=== PATIENT | female | born 1975 | race Caucasian/White ===

== ENCOUNTER 2018-06-22 00:47 | Outpatient (CLI) | payer BC, SELFPAY ==
--- NOTE | 2018-06-22 10:35 | DI.MAMMO_ITS ---
SYMPTOM/DIAGNOSIS: F/U MAMMO, 6 MO. F/U, R92.8 RIGHT MAMMOGRAM: Mammograms were interpreted according to the usual protocol including computer analysis with CAD system, tomosynthesis and C view imaging. This is a 6 month follow up from 11/2017. The right breast is composed of heterogeneously dense fibroglandular tissue. No suspicious masses or suspicious microcalcifications are seen. IMPRESSION: Category 1C, negative mammogram. Bilateral screening should be resumed in 6 months. [facility] ASSESSMENT OF FINDINGS: Negative. Category 1. Patient will receive a letter notifying them of these results. Bi-RADS category C. The breasts are heterogeneously dense, which may obscure small masses.
== END 2018-06-22 01:07 ==
PROVIDERS: Visit Provider Nurse Practitioner Family
DX: Z12.31 Encounter for screening mammogram for malignant neoplasm of breast (principal); R92.8 Other abnormal and inconclusive findings on diagnostic imaging of breast; N64.59 Other signs and symptoms in breast
CPT/HCPCS: 77061; 77065; G0279

== ENCOUNTER 2019-03-25 16:28 | Outpatient (REF) | payer BC, SELFPAY ==
--- NOTE | 2019-03-25 15:45 | PAPFT_PTH ---
PATIENT: Katty Zarate LOC: [facility] U#:[id number] AGE/SX: 43/F ROOM: RE03/25/[address]: NADEEN Munson : 1975 BED: DIS: 03/25/2019 SPEC #: [id number] RECD: 03/28/19 10:53 STATUS: HERNAN RETheo #: [id number] PASCALE: 03/25/19 15:[address]: Ana Bravo DEPT: [facility] Cytology RECD BY: Shi Gardiner ENTERED: 03/28/19 10:54 SP TYPE: PAPFT OTHR DR: Aretha Nolasco APRN Tissues: 1 - CX/ENDOCX FOR PAP SMEARS Procedures: PAP THIN PREP/UVM Screening HPV DNA PROBE Comments: [id number]
== END 2019-03-25 16:48 ==
LOC: LBN 16:28
PROVIDERS: Visit Provider Nurse Practitioner Family
DX: Z12.4 Encounter for screening for malignant neoplasm of cervix (principal); Z11.51 Encounter for screening for human papillomavirus (HPV)
CPT/HCPCS: 88142; 87624

== ENCOUNTER 2020-01-12 00:51 | Outpatient (CLI) | payer BC, SELFPAY ==
--- NOTE | 2020-01-12 16:24 | DI.MAMMO_ITS ---
EXAM: MAMMO SCREENING CLINICAL HISTORY: screening,Z12.39 TECHNIQUE: Mammograms were interpreted according to the usual protocol including computer analysis w [employer] CAD system, tomosynthesis and C-view imaging. COMPARISON: 2016 through 2019. FINDINGS: The breasts are composed of heterogeneously dense fibroglandular densities, Breast Density category C . No suspicious masses or suspicious microcalcifications are seen. No skin thickening or abnormal axillary lymph nodes are seen. There has been no significant change from prior exams. IMPRESSION: BI-RADS Category 1: Negative mammogram Yearly screening mammography is recommended. Breast Density - Category C, heterogeneously dense tissue which decreases the sensitivity of the mamm ogram. The mammogram demonstrates the patient's breast tissue is dense. Dense breast tissue is very common a nd is not abnormal but dense breast tissue can make it harder to find cancer on a mammogram. Also, de nse breast tissue may increase breast cancer risk. This information about the result of the mammogram report was provided to the patient to raise their awareness. Use this report when you speak with the patient about their risks for breast cancer, which includes their family history. At that time, you may recommend additional screening tests (Ultrasound or MRI) as they might be useful based on their r isk. A negative radiographic report should not delay biopsy if a dominant or clinically suspicious mass is present. Up to ten percent of cancers are not identified on mammography. A negative report may reinforce clinical impression. Adenosis and dense breasts may obscure an underlying neoplasm. False positive reports average 6 to 10%.
== END 2020-01-12 01:11 ==
PROVIDERS: Visit Provider Nurse Practitioner Family
DX: Z12.31 Encounter for screening mammogram for malignant neoplasm of breast (principal); R92.2 Inconclusive mammogram
CPT/HCPCS: 77063; 77067

== ENCOUNTER 2021-03-12 01:19 | Outpatient (CLI) | payer BC, SELFPAY ==
--- NOTE | 2021-03-12 15:50 | DI.MAMMO_ITS ---
Exam(s) MAMMO SCREENING EXAM: MAMMO SCREENING CLINICAL HISTORY: SCREENING, Z12.39 TECHNIQUE: Bilateral full field digital CC and MLO mammographic images were obtained with 3D tomosyn thesis and utilizing computer aided detection (CAD). COMPARISON: Available for comparison. FINDINGS: Masses/Architectural Distortion: There is a focal asymmetry in the posterior superior left breast on the mediolateral oblique view approximately 8 cm from the nipple. Microcalcifications: No suspicious pleomorphic-type are seen. Skin Thickening/Nipple Retraction: None. IMPRESSION: 1. Asymmetric density in the posterior superior left breast on the MLO view. 2. Spot compression views requested for further evaluation. Ultrasound may be indicated at that time . BI-RADS Category 0 - Assessment Incomplete: Need additional imaging evaluation Breast Density - Category C - Heterogeneously dense Breast density category C or D implies that the patient has dense breast tissue. Dense breast tissue is very common and is not abnormal but dense breast tissue can make it harder to find cancer on a ma mmogram. Also, dense breast tissue may increase their breast cancer risk. This information about the result of the mammogram report was provided to the patient to raise their awareness. Use this report when you speak with the patient about their risks for breast cancer, which includes their family hist ory. At that time, you may recommend for more screening tests (Ultrasound or MRI) as they might be us eful based on their risk. A negative radiographic report should not delay biopsy if a dominant or clinically suspicious mass is present. Up to ten percent of cancers are not identified on mammography. A negative report may reinforce clinical impression. Adenosis and dense breasts may obscure an underlying neoplasm. False positive reports average 6 to 10%. Patient will receive a letter notifying them of these results.
== END 2021-03-12 01:39 ==
PROVIDERS: Visit Provider Nurse Practitioner Family
DX: Z12.31 Encounter for screening mammogram for malignant neoplasm of breast (principal); R92.8 Other abnormal and inconclusive findings on diagnostic imaging of breast
CPT/HCPCS: 77063; 77067

== ENCOUNTER 2021-03-29 02:21 | Outpatient (CLI) | payer BC, SELFPAY ==
--- NOTE | 2021-03-29 14:48 | DI.MAMMO_ITS ---
Exam(s) MAMMO SCREEN CALL BACK UNI EXAM: MAMMO SCREEN CALL BACK UNI CLINICAL HISTORY: ASYMMETRIC DENSITY IN POSTERIOR SUPERIOR LT BREAST TECHNIQUE: Spot compression views and tomographic imaging were performed. COMPARISON: March 14 and exams back to 2015. FINDINGS: No suspicious masses or suspicious microcalcifications are seen. No persistent abnormality is seen on the additional views performed. The findings are consistent wit h overlying fibroglandular tissue. There has been no significant change from prior exams. IMPRESSION: BI-RADS Category 1, Negative Yearly screening mammography is recommended. Breast Density - Category C - Heterogeneously dense
== END 2021-03-29 02:41 ==
PROVIDERS: Visit Provider Nurse Practitioner Family
DX: R92.8 Other abnormal and inconclusive findings on diagnostic imaging of breast (principal)
CPT/HCPCS: 77063; 77067

== ENCOUNTER 2021-05-31 09:43 | Outpatient (REF) | payer BC, SELFPAY ==
[2021-06-01 16:56] LABS: COVID-19 RT-PCR UVMMC Result Negative (Negative)
== END 2021-05-31 09:44 | disposition home or self-care (01) ==
LOC: LBN 09:43
PROVIDERS: Visit Provider Family Medicine
DX: Z20.822 Contact with and (suspected) exposure to COVID-19 (principal)
CPT/HCPCS: U0003

== ENCOUNTER → 2023-03-09 01:15 | Outpatient (CLI) | payer BC, SELFPAY ==
--- NOTE | 2023-03-09 09:00 | DI.MAMMO_ITS ---
Exam(s) MAMMO SCREENING EXAM: MAMMO SCREENING CLINICAL HISTORY: screening,Z12.31 TECHNIQUE: Bilateral full field digital CC and MLO mammographic images were obtained with 3D tomosyn thesis and utilizing computer aided detection (CAD). COMPARISON: Available for comparison. FINDINGS: Masses/Architectural Distortion: There appears to be a new 8 mm nodule in the central lower left [address]. No areas of architectural distortion are seen. Microcalcifications: No suspicious pleomorphic-type are seen. Skin Thickening/Nipple Retraction: None. IMPRESSION: 1. New 8 mm nodule in the left breast. 2. Further evaluation with a spot compression view and a left breast ultrasound is requested. BI-RADS Category 0 - Assessment Incomplete: Need additional imaging evaluation Breast Density - Category C - Heterogeneously dense Breast density category C or D implies that the patient has dense breast tissue. Dense breast tissue is very common and is not abnormal but dense breast tissue can make it harder to find cancer on a ma mmogram. Also, dense breast tissue may increase their breast cancer risk. This information about the result of the mammogram report was provided to the patient to raise their awareness. Use this report when you speak with the patient about their risks for breast cancer, which includes their family hist ory. At that time, you may recommend for more screening tests (Ultrasound or MRI) as they might be us eful based on their risk. A negative radiographic report should not delay biopsy if a dominant or clinically suspicious mass is present. Up to ten percent of cancers are not identified on mammography. A negative report may reinforce clinical impression. Adenosis and dense breasts may obscure an underlying neoplasm. False positive reports average 6 to 10%. Patient will receive a letter notifying them of these results.
== END ==
PROVIDERS: PCP Nurse Practitioner Family; Visit Provider Obstetrics & Gynecology
DX: Z12.31 Encounter for screening mammogram for malignant neoplasm of breast (principal)
CPT/HCPCS: 77063; 77067

== ENCOUNTER 2023-03-09 16:07 | Outpatient (REF) | payer BC, SELFPAY ==
--- NOTE | 2023-03-09 16:15 | PAPFT_PTH ---
PATIENT: Katty Zarate LOC: [facility] U#:[id number] AGE/SX: 47/F ROOM: RE03/09/[address]: Lolita Telles MD : 1975 BED: DIS: 03/09/2023 SPEC #: [id number] RECD: 03/09/23 17:41 STATUS: HERNAN REQ #: [id number] PASCALE: 03/09/23 16:[address]: Lolita Telles DEPT: [facility] Cytology RECD BY: Elaine Ga ENTERED: 03/09/23 17:41 SP TYPE: PAPFT OTHR DR: Mehdi Velazquez DNP Tissues: 1 - CX/ENDOCX FOR PAP SMEARS Procedures: PAP THIN PREP/UVM Screening HPV DNA PROBE Comments: [id number]
== END 2023-03-09 16:08 | disposition home or self-care (01) ==
LOC: LBN 16:07
PROVIDERS: PCP Nurse Practitioner Family; Visit Provider Obstetrics & Gynecology
DX: Z12.4 Encounter for screening for malignant neoplasm of cervix (principal); Z11.51 Encounter for screening for human papillomavirus (HPV)
CPT/HCPCS: 88142; 87624

== ENCOUNTER 2023-03-16 01:26 | Outpatient (CLI) | payer BC, SELFPAY ==
--- NOTE | 2023-03-16 | DI.MAMMO_ITS ---
Exam(s) MG MAMMO SCREEN CALL BACK UNI US BREAST LT COMPLETE EXAM: MG MAMMO SCREEN CALL BACK UNI-LEFT AND COMPLETE LEFT BREAST ULTRASOUND CLINICAL HISTORY: 8 MM NODULE LEFT BREAST R92.8 ABNL MAMMO. TECHNIQUE: Unilateral spot mammographic images obtained with 3D tomosynthesisand utilizing computer aided detection (CAD). . Complete LEFT breast Ultrasound was also performed, including all 4 quadrants, the retroareolar regio n, and the ipsilateral axilla. COMPARISON: Prior mammograms were reviewed. This additional imaging was performed due to findings described on the recent screening mammogram of 03/09/2023. FINDINGS: DIAGNOSTIC MAMMOGRAM: Additional mammographic views performed todayare somewhat equivocal for the presence of a true nodule at this location. We proceeded with ultrasound COMPLETE LEFT BREAST ULTRASOUND: Ultrasound performed today reveals 2 small benign microcyst at the 10 and 11 o'clock positions, measu ring 3 and 5 mm, respectively. One of these may or may not correspond to the finding on the mammogra m. Nevertheless, there are no focal solid lesions seen in all 4 quadrants of the left breast. Scanning of the ipsilateral axilla reveals no significant adenopathy. IMPRESSION: 1. Benign-appearing findings as described above. Appropriate follow-up as discussed by myself with the patient today is repeat left breast mammogram a nd ultrasound in 6 months. The patient was informed of these findings and recommendations by myself prior to leaving the [facility] ent today. BI-RADS Category 3 - 6 month - Probably Benign Finding: Recommend follow-up mammography in 6 months Breast Density - Category C - Heterogeneously dense Breast density Category C or D implies that the patient has dense breast tissue. Dense breast tissue can make it harder to find cancer on a mammogram. Dense breast tissue is also associated with an incr eased risk of breast cancer. This information about the result of the mammogram report was provided to the patient to raise their awareness. Use this report when you speak with the patient about their risks for breast cancer, which includes their family history. At that time, you may recommend additional screening tests (Ultrasoun d or MRI) as these tests may add significant information. A negative radiographic report should not delay biopsy if a dominant or clinically suspicious mass is present. Up to ten percent of cancers are not identified on mammography. A negative report may reinforce clinical impression. Adenosis and dense breasts may obscure an underlying neoplasm. False positive reports average 6 to 10%. Patient will receive a letter notifying them of these results.
== END 2023-03-16 01:46 ==
LOC: DI 01:27
PROVIDERS: PCP Nurse Practitioner Family; Visit Provider Obstetrics & Gynecology
DX: Z12.31 Encounter for screening mammogram for malignant neoplasm of breast (principal); N63.22 Unspecified lump in the left breast, upper inner quadrant
CPT/HCPCS: 76642; 77063; 77067

== ENCOUNTER 2023-08-14 21:21 | Outpatient (REF) | payer BC, SELFPAY ==
[2023-08-14 21:26] LABS: Abs Immature Grans 0.02 10^3/uL (0.0-0.06); Absolute Basophil Count 0.06 10^3/uL (0.0-0.2); Absolute Eosinophil Count 0.32 10^3/uL (0.0-0.7); Absolute Lymphocyte Count 1.92 10^3/uL (1.2-3.4); Absolute Monocyte Count 0.59 10^3/uL (0.1-0.8); Absolute Neutrophil Count 3.82 10^3/uL (1.2-6.7); Basophils % 0.9; Eosinophils % 4.8; HCT 44.2 % (36.0-46.0); Immature Grans % 0.3; Lymphocytes % 28.5; MCHC 33.9 % (32.0-36.0); MCV 85 fL (80-95); MPV 9.8 fL (8.0-11.0); Monocytes % 8.8; Neutrophils % 56.7; Platelet Count 275 10^3/uL (130-400); RBC 5.18 10^6/uL (3.93-5.22); RDW 12.3 % (11.7-14.6); RDW-SD 38.4 fL; WBC 6.73 10^3/uL (4.4-10.8)
[2023-08-14 21:42] LABS: ALT 35 U/L (14-59); AST 24 U/L (15-37); Albumin 3.9 g/dL (3.4-5.0); Alkaline Phosphatase 54 U/L (46-116); Anion Gap 11.6 mmol/L (3-11); BUN 9 mg/dL (7-18); Bilirubin, Total 0.5 mg/dL (0.2-1.0); CO2 25.4 mmol/L (21.0-32.0); CREATININE 0.7 mg/dL (0.55-1.02); Calcium 9.3 mg/dL (8.5-10.1); Chloride 105 mmol/L (98-107); Estimated GFR 106.62 (mL/min/1.73m2); Glucose 88 mg/dL (74-106); Potassium 3.9 mmol/L (3.5-5.1); Sodium 142 mmol/L (136-145); Total Protein 7.1 g/dL (6.4-8.2)
== END 2023-08-14 21:22 | disposition home or self-care (01) ==
LOC: LBN 21:21
PROVIDERS: PCP Nurse Practitioner Family; Visit Provider Physician Assistant Medical
DX: R10.9 Unspecified abdominal pain (principal)
CPT/HCPCS: 80053; 85025

== ENCOUNTER 2023-08-20 11:26 | Emergency (ER) | payer BC, SELFPAY ==
[2023-08-20 11:33] VITALS: BP 173/89; PULSE 98; RESP 16; TEMP 36.6; O2SAT 100
--- NOTE | 2023-08-20 12:26 | ED.GENADUL_ITS ---
Discharge Plan Disposition Patient Disposition: Home Discharge Details Clinical Impression: Constipation Primary Care Provider: Mehdi Shukla ED Provider: Luis Erazo Home Meds and New Rx's Prescriptions: New polyethylene glycol 3350 17 gram/dose powder 17 g PO DAILY Qty: 850 0RF Rx Instructions: Please provide 1 gallon of polyethylene glycol for patient to drink over 4 hours in the setting of constipation Continued magnesium 200 mg tablet 200 mg PO DAILY omega 5-hpm-xgq-fish oil [Fish Oil] 60-90-500 mg capsule 1 cap PO DAILY calcium carbonate [Calcium 600] 600 mg calcium (1,500 mg) tablet 600 mg PO DAILY cetirizine [Zyrtec] 10 mg tablet 10 mg PO DAILY PRN Liletta 20.4 mcg/24 hrs (8 yrs) 52 mg intrauterine device 1 device intrauterine ONCE Rx Instructions: as a single dose cholecalciferol (vitamin D3) [Vitamin D3] 1,000 UNIT capsule 1,000 unit PO DAILY Patient Comments: 04/23/17 not taking. DL Probiotic 1 EACH capsule 1 ea PO DAILY mu-xau-djdil acid-lutein 200-137.5 mcg tablet,chewable 1 tab PO DAILY Discharge Instructions Instructions: Constipation (ED) Additional Instructions: You were seen in the emergency department for your constipation. You received an enema. A prescription for a colonoscopy prep has been sent to the [facility] at the bottom of the [place]. Please take this as directed. Please return to the emergency department, as we discussed if you develop fevers do not urinate at least once every 8 hours while awake or if you develop worsening pain. Please follow-up care provider as previously scheduled. Discharge Data Discharge Date/Time-TO BE ENTERED AT DEPARTURE: 08/20/23 13:27 HPI General Date/Time Provider Initiated Documentation: 08/20/23 11:43 . HPI Narrative: MDM This is an overall very well-appearing normothermic and not tachycardic 48-year-old female with constipation but symptoms reassuring against small bowel obstruction based on CT from yesterday and lack of vomiting History. No history of unintentional weight loss so my suspicion is low for colonic mass however the patient has not had a colonoscopy and will certainly benefit from a colonoscopy when she is able to establish primary care follow-up later this spring. I do not feel that she requires an emergent colonoscopy so I feel she is appropriate for discharge. Will attempt treatment with enema and provide polyethylene glycol prescription to the pharmacy to relieve her constipation. No history of inflammatory bowel disease. No past abdominal surgeries making her low risk for SBO. Right lower quadrant tenderness so doubt appendicitis. No epigastric pain nor routine ethanol so doubt pancreatitis. No pain out of proportion to suggest necrotizing soft tissue infection. No dysuria no frequency so doubt UTI. No rash to abdomen to suggest zoster. Patient is not on any medications to suggest iatrogenic constipation. She has no history of Parkinson's nor any other neurological conditions to make her at risk for decreased colonic motility. She is not hypotensive nor hypothermic so doubt myxedema coma. No signs of stercoral colitis on CT from yesterday so doubt fecal impaction. Recent labs reviewed with acute electrolyte abnormalities. No anemia thrombocytopenia no leukocytosis. Patient was not hypothyroid as of several years ago. My suspicion is low for anal fissure given lack of pain. 1:52 PM Patient had unfortunately no relief with Fleet enema. Met with the patient again and advised her to return to the ED if she developed nausea or vomiting that did not stop or if she developed worsening abdominal pain that did not resolve. Patient understood her return indications and was discharged with empiric trial of expectant outpatient management. HPI This is a 48-year-old female with no past medical history arrived to the emergency department in the setting of intermittent abdominal pain and constipation diagnosed yesterday by CT. Patient has been taking MiraLAX daily but has had a significant bowel movement in the past several weeks. She reports her symptoms began 4 to 6 weeks ago and caused her left-sided abdominal pain. Intermittently she has small, soft bowel movements. She reports she has been passing gas and feels more bloated, particularly after taking fiber. She takes no routine medications. She has no history of inflammatory bowel disease. She has never had any surgeries to her abdomen. She occasionally drinks ethanol but denies routine tobacco and illicits. She has been trying a bland diet exercise and water but these have not improved her symptoms. Patient has no reported hemorrhoids nor anal pain. Exam General: Well-appearing in no acute distress speaking in complete sentences. Head: Normocephalic, atraumatic. Eye: Extraocular eye movements intact. No conjunctival injection. No scleral icterus. Ear, nose, mouth, throat: Grossly normal inspection. Normal voice, handling secretions normally. Neck: Trachea midline. Cardiovascular: Well-perfused distal extremities. Respiratory: Nonlabored respiration. Gastrointestinal: Nondistended abdomen. Soft. Nontender. No rebound. No guarding. Musculoskeletal: No edema. Moving all 4 extremities spontaneously. Skin: Normal for age and race, grossly normal temperature and turgor. No acute rash. Neurologic: Alert and appropriate, no apparent acute deficits. Psychiatric: Mood and manner are appropriate. Grooming and personal hygiene are appropriate. Related Data Home Medications Medication Instructions Recorded Confirmed cholecalciferol (vitamin D3) 25 1,000 unit PO DAILY 03/30/17 08/20/23 mcg (1,000 unit) capsule (Vitamin D3) Lactobacillus acidophilus 10 1 ea PO DAILY 10/26/17 08/20/23 billion cell capsule (Probiotic) cetirizine 10 mg tablet (Zyrtec) 10 mg PO DAILY PRN 03/09/23 08/20/23 levonorgestrel 20.4 mcg/24 hrs (8 1 device intrauterine ONCE 04/23/23 08/20/23 yrs) 52 mg intrauterine device (Liletta) multivit with min-folic 1 tab PO DAILY 04/23/23 08/20/23 acid-lutein 200 mcg-137.5 mcg chewable tablet calcium carbonate 600 mg calcium 600 mg PO DAILY 08/11/23 08/20/23 (1,500 mg) tablet (Calcium) magnesium 200 mg tablet 200 mg PO DAILY 08/11/23 08/20/23 omega 4-nyi-kry-fish oil 60 mg-90 1 cap PO DAILY 08/11/23 08/20/23 mg-500 mg capsule (Fish Oil) polyethylene glycol 3350 17 17 g PO DAILY #850 grams 08/20/23 gram/dose oral powder Previous Rx's Medication Instructions Recorded polyethylene glycol 3350 17 17 g PO DAILY #850 grams 08/20/23 gram/dose oral powder Allergies Allergy/AdvReac Type Severity Reaction Status Date / Time seasonal Allergy Unknown other Uncoded 08/20/23 11:31 General Stated Complaint: Abd Prob EPIFANIO: 4 Course Vital Signs Vital signs: Vital Signs Temperature 36.6 C 08/20/23 11:33 Pulse 98 H 08/20/23 11:33 Respiratory Rate 16 08/20/23 11:33 Blood Pressure 173/89 H 08/20/23 11:33 Pulse Oximetry 100 08/20/23 11:33 Temperature 36.6 C 08/20/23 11:33 Temperature Source Temporal Artery Scan 08/20/23 11:33 Pulse 98 H 08/20/23 11:33 Respiratory Rate 16 08/20/23 11:33 Respiratory Effort Normal, Non-Labored 08/20/23 12:04 Blood Pressure 173/89 H 08/20/23 11:33 Blood Pressure Position Sitting 08/20/23 11:33 Pulse Oximetry 100 08/20/23 11:33 Oxygen Delivery Method Room Air 08/20/23 11:33 Oxygen Flow Rate 0 08/20/23 11:33 Pain Level 6 08/20/23 11:33 Medical Decision Making Quality:SDOH Health Related Social Needs: No Data to Display PFSH All Active Problems (Updated 08/20/23 @ 12:44 by Luis Erazo MD) Constipation (Acute) Left lower quadrant pain (Acute) Anxiety and depression (Chronic) Medical History (Updated 08/20/23 @ 12:44 by Luis Erazo MD) Presence of IUD Liletta IUD placed 04/23/23 Perimenopausal menorrhagia Liletta IUD placed 04/23/23 Perimenopausal Sinusitis chronic, ethmoidal Allergic symptoms Otitis media not resolved Essential hypertension Sleep disorder Heart palpitations (05/26/14) 2014 Holter 19 second SVT Family history of breast cancer in mother (07/09/15) diagnosed around age 55 Surgical History Tonsillectomy and adenoidectomy 1979' Family History Other Hyperlipidemia Mental disorder Personal history of malignant neoplasm Social History Smoking/Tobacco Use Status: Never Smoking risk assessment performed?: Yes Alcohol Intake: current Alcohol Intake frequency: holidays/special occasions only Drug use: Never Substance use type: does not use Housing: house Do you feel safe at home: Yes Do you feel safe in your relationship?: Yes History History 3 Para 2 Hx # Term Pregnancies Multiple births Hx # Pregnancies Ectopic pregnancies AB induced Hx Number of Living Children AB spontaneous
== END 2023-08-20 13:27 | disposition home or self-care (01) ==
PROVIDERS: Emergency Provider Emergency Medicine; PCP Nurse Practitioner Family
DX: R10.9 Unspecified abdominal pain (principal); K59.00 Constipation, unspecified
CPT/HCPCS: 99283

== ENCOUNTER → 2023-09-16 04:42 | Outpatient (CLI) | payer BC, SELFPAY ==
--- NOTE | 2023-09-16 | DI.MAMMO_ITS ---
Exam(s) MG MAMMO DIAGNOSTIC UNI US BREAST LT LIMITED EXAM: MG MAMMO DIAGNOSTIC UNI and U/S breast LT limited CLINICAL HISTORY: 6 MO F/U, R93.89, LT BREAST MICROCYSTS. TECHNIQUE: Craniocaudal and mediolateral oblique Full Field Digital Mammography views of the left br east with Computer Aided Diagnosis followed by Tomosynthesis and left breast ultrasound. COMPARISON: Comparison is made with prior examinations. FINDINGS: Mammography/Tomosynthesis: Masses/Architectural Distortion: No new masses or areas of architectural distortion are present. Microcalcifictions: No suspicious pleomorphic-type are seen. Skin Thickening/Nipple Retraction: None. Limited left breast US: Echotexture: Normal appearance of the glandular tissue. Shadowing: No suspicious foci. Cyst: Simple cysts are again seen at the 10 and 11 o'clock position of the left breast. No suspiciou s cystic lesions are seen. Solid lesions: None seen. Ductal dilation: None. IMPRESSION: 1. No evidence of malignancy is noted. 2. Unless there is more urgent need, follow-up screening mammography is recommended, as per [place] [employer] guidelines. 3. The findings were discussed with the patient on the date of the examination. BI-RADS Category 2 - Benign Findings Breast Density - Category C - Heterogeneously dense Breast density Category C or D implies that the patient has dense breast tissue. Dense breast tissue can make it harder to find cancer on a mammogram. Dense breast tissue is also associated with an incr eased risk of breast cancer. This information about the result of the mammogram report was provided to the patient to raise their awareness. Use this report when you speak with the patient about their risks for breast cancer, which includes their family history. At that time, you may recommend additional screening tests (Ultrasoun d or MRI) as these tests may add significant information. A negative radiographic report should not delay biopsy if a dominant or clinically suspicious mass is present. Up to ten percent of cancers are not identified on mammography. A negative report may reinforce clinical impression. Adenosis and dense breasts may obscure an underlying neoplasm. False positive reports average 6 to 10%. Patient will receive a letter notifying them of these results.
== END ==
PROVIDERS: PCP Student in an Organized Health Care Education/Training Program; Visit Provider Obstetrics & Gynecology
DX: R93.89 Abnormal findings on diagnostic imaging of other specified body structures (principal); Z12.31 Encounter for screening mammogram for malignant neoplasm of breast
CPT/HCPCS: 76642; 77061; 77065; G0279

== ENCOUNTER 2023-11-27 17:03 | Outpatient (REF) | payer BC, SELFPAY ==
[2023-11-27 18:52] LABS: COMMENT (LAB VIEW ONLY) 38.02 mg/dL
== END 2023-11-27 17:04 | disposition home or self-care (01) ==
LOC: LBN 17:03
PROVIDERS: PCP Student in an Organized Health Care Education/Training Program; Visit Provider Student in an Organized Health Care Education/Training Program
DX: I10 Essential (primary) hypertension (principal)
CPT/HCPCS: 82043; 82570

== ENCOUNTER 2024-04-19 00:47 | Outpatient (CLI) | payer BC, SELFPAY ==
--- NOTE | 2024-04-19 07:45 | DI.MAMMO_ITS ---
Exam(s) MAMMO SCREENING EXAM: MAMMO SCREENING CLINICAL HISTORY: screening,z12.31 TECHNIQUE: Bilateral full field digital CC and MLO mammographic images were obtained with 3D tomosyn thesis and utilizing computer aided detection (CAD). COMPARISON: Available for comparison. FINDINGS: Masses/Architectural Distortion: None seen. Microcalcifications: No suspicious pleomorphic-type are seen. Skin Thickening/Nipple Retraction: None. IMPRESSION: 1. No significant interval change with no specific features of malignancy noted. 2. Unless there is more urgent need, screening mammography is recommended, as per [place] [employer] guidelines. BI-RADS Category 1 - Negative Breast Density - Category C - Heterogeneously dense Breast density category C or D implies that the patient has dense breast tissue. Dense breast tissue is very common and is not abnormal but dense breast tissue can make it harder to find cancer on a ma mmogram. Also, dense breast tissue may increase their breast cancer risk. This information about the result of the mammogram report was provided to the patient to raise their awareness. Use this report when you speak with the patient about their risks for breast cancer, which includes their family hist ory. At that time, you may recommend for more screening tests (Ultrasound or MRI) as they might be us eful based on their risk. A negative radiographic report should not delay biopsy if a dominant or clinically suspicious mass is present. Up to ten percent of cancers are not identified on mammography. A negative report may reinforce clinical impression. Adenosis and dense breasts may obscure an underlying neoplasm. False positive reports average 6 to 10%. Patient will receive a letter notifying them of these results.
== END 2024-04-19 01:07 ==
LOC: DI 00:47
PROVIDERS: PCP Student in an Organized Health Care Education/Training Program; Visit Provider Obstetrics & Gynecology
DX: Z12.31 Encounter for screening mammogram for malignant neoplasm of breast (principal); R92.333 Mammographic heterogeneous density, bilateral breasts
CPT/HCPCS: 77063; 77067